=== PATIENT | male | born 1975 | race Caucasian/White ===

== ENCOUNTER 2016-12-21 20:30 | Emergency (ER) | payer SELFPAY ==
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
[2016-12-21] MEDS ORDERED: Lidocaine 1% 50 ML MDV INJECT ONE (21:46)
--- NOTE | 2016-12-21 22:30 | CT ---
CT cervical spine Technique: Multiple axial sections through the cervical spine were obtained. Findings: Moderate disc space narrowing is noted at C5-6 and C6-7. Both these levels shows mild anterior osteophytes. Slight posterior osteophytes are noted at C3-4 C5-6 and C6-7. Apophyseal joints appear within normal limits. Slight degenerative spurring is noted within the uncovertebral joints at C5-6 and more prominently at C6-7. Mastoid sinuses and middle ear cavities are clear. Posterior skull base is intact. No fracture is appreciated. Mild right-sided neural foraminal stenosis noted at C6-7. Mild right-sided neural foraminal stenosis noted at C3-4. Other neural foramina are patent. No abnormal subluxation is seen. Impression: 1. Mild degenerative change as described above. 2. No acute abnormality is appreciated. Diagnostic code #2
[2016-12-21] MEDS ORDERED: Cephalexin 500 MG Cap PO ONE (23:09)
[2016-12-22 00:10] VITALS: BP 151/90
--- NOTE | 2016-12-22 09:04 | CR ---
Chest: Supine view of the chest was obtained. Comparison: No previous study. Heart size is normal. Mild tortuosity of the thoracic aorta is seen. Lungs are clear with no acute infiltrates. Bony structures are grossly intact. Impression: 1. Nothing acute is identified on supine chest x-ray. Diagnostic code #2
--- NOTE | 2016-12-22 09:04 | CR ---
Left second finger: Four views centered to the left second finger were obtained. Comparison: No previous study. Mild soft tissue swelling is seen. Joint spaces are preserved. No fracture, dislocation or other bony abnormality is seen. Impression: 1. Soft tissue swelling. No bony abnormality is seen on left second finger study. Diagnostic code #2
--- NOTE | 2016-12-22 09:04 | CR ---
Left femur: AP and lateral views of the left femur were obtained. Comparison: No previous study. No fracture or other bony abnormality is seen. Impression: 1. No abnormality is identified on left femur study. Diagnostic code #1
--- NOTE | 2016-12-22 10:13 | CR ---
Pelvis: AP view of the pelvis was obtained. Comparison: No previous study. Joint spaces are maintained within both hips. Sacroiliac joints are within normal limits. No fracture or other abnormality is seen. Impression: 1. No abnormality is identified on AP pelvis study. Diagnostic code #1
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
== END 2016-12-21 23:55 | disposition home or self-care (01) ==
LOC: JD.ED 20:30
DX: S81.012A Laceration without foreign body, left knee, initial encounter (principal); S81.811A Laceration without foreign body, right lower leg, initial encounter; S63.611A Unspecified sprain of left index finger, initial encounter; S20.311A Abrasion of right front wall of thorax, initial encounter; S80.812A Abrasion, left lower leg, initial encounter; S80.811A Abrasion, right lower leg, initial encounter; V95.8XXA Other powered aircraft accidents injuring occupant, initial encounter
CPT/HCPCS: 12002; 36415; 71010; 72125; 72170; 73140; 73552; 73560; 80053; 80306; 81001; 83690; 85025; 85610; 85730; 86850; 86900; 86901; 93005; 99285; A9270; G0480; 99284-25